=== PATIENT | female | born 1965 | race Caucasian/White ===

== ENCOUNTER 2017-03-14 04:46 | Emergency (ER) | payer OTHER ==
[2017-03-14 04:52] VITALS: BP 133/95; PULSE 85; RESP 16; O2SAT 99
--- NOTE | 2017-03-14 05:14 | ED.REPORT ---
HPI-Dyspnea / Wheezing Date of Service March 14, 2017 ED Provider: Dr. Ricky Mittal MD A 51 year old female presents to the ED with diffuse lower extremity swelling that began 2 weeks ago. Associated symptoms include heart palpitations, lightheadedness and SOB that began earlier this evening. She denies any similar previous episodes of swelling or history of varicose veins. Patient is a current everyday smoker. Nursing Notes Stated Complaint: SHORT OF BREATH Chief Complaint: General Complaint Nursing Notes Reviewed: Yes Allergies: Coded Allergies: No Known Allergies (Unverified , 03/14/17) Scheduled Cephalexin (Cephalexin) 500 Mg Capsule 500 MG PO TID Levothyroxine (Levothyroxine) 100 Mcg Tablet 100 MCG PO DAILY General Time Seen by MD: 05:12 Chief Complaint Other (Bilateral lower extremity swelling) Hx Obtained From: Patient Arrived By: Walk-in Sudden in Onset?: No Onset Occurred: 5 - 8 hours ago Symptom Duration: Since onset Location: : None Pertinent Negative: Pt denies other symptoms Recent Healthcare: No recent doctor visit, No recent hospitalization Past Medical History Past Medical History None reported. Past Surgical History None reported. Smoking History Current Every Day Smoker Social History Drug Use: THC Other Social History: Good social support Ambulatory Status Independent Review of Systems Constitutional: Denies: Chills, Fever Respiratory: Reports: Shortness of breath Cardiovascular: Reports: Palpitations Musculoskeletal: Reports: Extremity swelling (d) Skin: Reports Swelling Complete sys rev & neg: except as marked. Neurologic: Reports: Lightheaded Physical Exam Initial Vital Signs Vital Signs (First) Date Time Temp Pulse Resp B/P Pulse Ox O2 Delivery O2 Flow Rate FiO2 03/14/17 04:52 36.4 85 16 133/95 99 Room Air Initial VS: Reviewed, Vital signs normal Head / Eyes: Atraumatic, Normocephalic, PERRL Extremities: Vascular intact, Neuro intact, No swelling, No tenderness Skin: Warm, Dry, No cyanosis Neurologic: Alert, Oriented, Nonfocal Psychiatric: Mood/affect normal, Behavior normal, Normal thought content General/Constitutional: Awake, Alert, No acute distress Neck: Atraumatic, Supple Respiratory / Chest: Atraumatic, Breath sounds NL, Breath sounds = bilat, No respiratory distress, No rales, No rhonchi, No wheezing Cardiovascular: Heart sounds NL, Peripheral circulation NL (no engorged veins ) , Pulses = bilaterally Lower Ext Edema: Positive: Bilateral 1+, Pitting CARDIO: Frequent PVC's Interpretation & Diagnostics Lab Results Interpretation Result Diagram: 03/14/17 0518 03/14/17 0518 Test 03/14/17 05:18 White Blood Count 6.7th/mm3 (3.8-10.1) Red Blood Count 4.17mil/mm3 (3.90-5.20) Hemoglobin 14.1g/dL (12.0-15.6) Hematocrit 41.3% (35.0-46.0) Mean Corpuscular Volume 99.0fL (81-100) Mean Corpuscular Hemoglobin 33.8pg (27.0-35.0) Mean Corpuscular Hemoglobin Concent 34.1% (32.0-37.0) Red Cell Distribution Width 12.5% (12.3-15.4) Platelet Count 266bil/L (150-400) Neutrophils (%) (Auto) 68.3% (40-74) Lymphocytes (%) (Auto) 21.8% (14-46) Monocytes (%) (Auto) 7.1% (4-12) Eosinophils (%) (Auto) 2.1% (0-5) Basophils (%) (Auto) 0.6% (0-3) Hold Purple Top Tube Received (Received) Hold Blue Top Tube Received (Received) Urine Color Yellow (YELLOW) Urine Appearance Hazy (CLEAR,HAZY) Urine pH 7.0 (5.0-8.0) Urine Specific [place] 1.005 (1.003-1.035) Urine Protein Negativemg/dL (NEG,TRACE) Urine Glucose (UA) Negativemg/dL (NEGATIVE) Urine Ketones Negativemg/dL (NEGATIVE) Urine Occult Blood Trace (NEGATIVE) Urine Nitrite Positive (NEGATIVE) Urine Bilirubin Negative (NEGATIVE) Urine Urobilinogen Normalmg/dL (NORMAL) Urine Leukocyte Esterase Small (NEGATIVE) Urine RBC 3-10/hpf (0-2) Urine WBC 11-50/hpf (0-5) Urine Epithelial Cells Few/hpf (NONE-MOD) Urine Crystals None seen (NONE SEEN) Urine Bacteria Many/hpf (NONE-FEW) Urine Hyaline Casts None/lpf (NONE) Urine Granular Casts None seen (NONE SEEN) Urine Waxy Casts None seen (NONE SEEN) Urine Red Blood Cell Casts None seen (NONE SEEN) Urine White Blood Cell Casts None seen (NONE SEEN) Urine Mucus None seen (None Seen) Urine Trichomonas None seen (NONE SEEN) Urine Yeast None (NONE SEEN) Urinalysis Comment None Urine Culture Reflexed Indicated Hold Urine Received (Received) Sodium Level 139mEq/L (134-144) Potassium Level 3.6mEq/L (3.5-5.2) Chloride Level 100mEq/L (97-108) Carbon Dioxide Level 25mmol/L (18-29) Blood Urea Nitrogen 16mg/dL (6-24) Creatinine 0.81mg/dL (0.57-1.00) Estimat Glomerular Filtration Rate 106mL/min (>59) Glucose Level 118mg/dL (60-99) Calcium Level 9.5mg/dL (8.5-10.1) Magnesium Level 2.3mg/dL (1.6-2.6) Total Bilirubin 1.0mg/dL (0.0-1.2) Aspartate Amino Transf (AST/SGOT) 34U/L (0-50) Alanine Aminotransferase (ALT/SGPT) 25U/L (0-32) Alkaline Phosphatase 59U/L (25-150) Troponin T 0.010ug/L (0.0-0.011) Pro-B-Type Natriuretic Peptide 60.07pg/mL (0-249) Total Protein 7.3g/dL (6.4-8.4) Albumin 4.4g/dL (3.4-5.0) Thyroid Stimulating Hormone (TSH) 201.200uIU/mL (0.450-4.500) Hold [place] Top Tube Received (Received) Lab Results Interpretation: Urinalysis shows UTI, culture pending. ECG Interpretation ECG Interpretation: Sinus Rhythm Rate 72 Nonspecific T abnormalities; anterolateral leads Time: 05:40 Interpreted by: ED physician X-Ray Chest Interpretation Chest Xray Interpretation: IMPRESSION: No acute Interpretation / Wet Read by: Wet read ED physician Re-Eval/Medical Decision Med Decision/Clinical Course 51-year-old female with relatively asymptomatic UTI which was treated with IV Rocephin to be followed by a 10 day course of cephalexin. Her edema may be related to the UTI. There is no evidence of kidney disease or CHF. No calf tenderness and the swelling is symmetric so I do not suspect DVT. She was also noted to have frequent ventricular bigeminy. This is asymptomatic. She is being discharged home with antibiotics and instruction to follow up with her regular doctor. Re-Evaluation/Progress : Time of Eval: 06:02 Patient Status: Condition improved Re-Evaluation/Progress Note: Patient is rechecked. She is informed of her lab results, EKG results, X-ray results and diagnosis. All of the patient's questions are addressed. She understands and agrees with the treatment plan. Counseled Regarding: Diagnosis, Lab results, Need for follow-up, When/why to return to ED Discharge & Departure Impression: Primary Impression: Urinary tract infection Urinary tract infection type: site unspecified Hematuria presence: without hematuria Qualified Code: N39.0 - Urinary tract infection, site not specified Additional Impressions: Edema Edema type: unspecified Qualified Code: R60.9 - Edema, unspecified Ventricular ectopy Disposition: Home Discharge Condition All VS Reviewed: Yes Condition: Stable Patient Instructions: Kidney Infection (GEN), Urinary Tract Infection in Women (GEN) Additional Instructions: You have a urinary tract infection. Your given Rocephin 2 g in the emergency room. Follow this with Keflex (cephalexin) 500 mg 3 times a day for 10 days, # 30 scribed. Drink plenty of fluids. There is no evidence of any heart or kidney problems that could cause the ankle edema. I think that it is associated with the urinary urinary tract infection. Talk to your regular doctor as needed for any further evaluation. Referrals: [facility] Scribe Attestation Portions of this note were transcribed by Jael Munguia. I, Dr. Mittal personally performed the history, physical exam and medical decision-making; I reviewed and confirmed the accuracy of the information in the transcribed note. Signed by: Ke Samuel, 03/14/17 0620. Ricky Mittal MD March 14, 2017 05:14 JAEL MUNGUIA March 14, 2017 05:19
[2017-03-14 05:17] VITALS: BP 133/95; PULSE 85; RESP 16; O2SAT 99
[2017-03-14 05:33] LABS: BASOPHILS % (AUTO) 0.6 % (0-3); EOSINOPHILS % (AUTO) 2.1 % (0-5); MONOCYTES % (AUTO) 7.1 % (4-12); Mean Corpuscular Hemoglobin 33.8 pg (27.0-35.0); NEUTROPHILS % (AUTO) 68.3 % (40-74); Platelet Count 266 bil/L (150-400)
[2017-03-14 05:40] LABS: APPEARANCE,URINE HAZY (CLEAR,HAZY); COLOR,URINE YELLOW (YELLOW); OCCULT BLOOD,URINE TRACE (NEGATIVE); UROBILINOGEN,URINE NORMAL (NORMAL)
[2017-03-14 05:58] LABS: TROPONIN T 0.01 ug/L (0.0-0.011)
[2017-03-14 06:43] LABS: Magnesium 2.3 mg/dL (1.6-2.6)
[2017-03-14] MEDS ORDERED: CEPH500C PO (06:54)
[2017-03-14] MEDS ORDERED: LEVO100T6 PO (07:24)
[2017-03-14 07:33] VITALS: BP 109/59; PULSE 80; RESP 16; O2SAT 99
--- NOTE | 2017-03-14 07:58 | DRSVH ---
PROCEDURE: X-RAY CHEST ONE VIEW, PORTABLE ([id number]) INDICATIONS: dyspnea TECHNIQUE: One view of the chest was acquired. COMPARISON: None. FINDINGS: Surgical changes and devices: None. Lungs and pleura: No pleural effusions or pneumothorax. Lungs are clear. Mediastinum: Mediastinal contours appear normal. Heart size is normal. Bones and chest wall: No suspicious bony lesions. Overlying soft tissues appear unremarkable. IMPRESSION: No acute cardiopulmonary findings. Dictated by: Lauren Meneses M.D. on 03/14/2017 at 7:56 Approved by: Lauren Meneses M.D. on 03/14/2017 at 7:56
== END 2017-03-14 07:34 | disposition home or self-care (01) ==
LOC: SED 04:46
DX: R60.9 Edema, unspecified (principal); N39.0 Urinary tract infection, site not specified; I49.3 Ventricular premature depolarization; B96.20 Unspecified Escherichia coli [E. coli] as the cause of diseases classified elsewhere; F17.200 Nicotine dependence, unspecified, uncomplicated